=== PATIENT | female | born 1985 | race Hispanic/Latino ===

== ENCOUNTER 2020-11-14 03:57 | Emergency (ER) | payer OTHER ==
[2020-11-14 14:25] LABS: SARS-CoV-2 PCR by NAA Not Detected (NotDetected)
== END 2020-11-14 04:53 | disposition home or self-care (01) ==
LOC: CSHERS 03:57
DX: J06.9 Acute upper respiratory infection, unspecified (principal); Z20.822 Contact with and (suspected) exposure to COVID-19; D64.9 Anemia, unspecified; F17.210 Nicotine dependence, cigarettes, uncomplicated
CPT/HCPCS: 71045; 87635; 93005; U0003; U0005

== ENCOUNTER 2021-10-05 18:28 | Emergency (ER) | payer OTHER, SELFPAY ==
[2021-10-05 19:07] LABS: #Basophils 0.1 10x3/uL (0.0-0.2); #Eosinphils 0.1 10x3/uL (0.0-0.5); #Monocytes 0.4 10x3/uL (0.0-1.1); #Neutrophils 6.7 10x3/uL (1.5-8.4); %Basophils 0.5 % (0.0-2.0); %Eosinophils 1.5 % (0.0-6.0); %Monocytes 4.6 % (0.0-10.0); %Neutrophils 69.1 % (40.0-75.0); Hemoglobin 12.3 g/dL (12.0-15.5); Mean Corpuscular HGB CONC 32.5 g/dL (32.0-36.0); Mean Corpuscular Hemoglobin 27.3 pg (27.0-33.0); Mean Platelet Volume 11.6 fl (7.4-10.4); Platelet Count 252 10x3/uL (150-450); RBC Distribution Width 16.3 % (11.5-14.5); White Blood Cell (WBC) Count 9.6 10x3/uL (3.5-10.5)
[2021-10-05 19:21] LABS: ALT (SGPT) 19 U/L (8-55); AST (SGOT) 15 U/L (5-34); Albumin 4.1 g/dL (3.5-5.0); Alkaline Phosphatase 67 U/L (40-110); Anion Gap 11 mmol/L (10-20); BUN (Urea Nitrogen) 10 mg/dL (7.0-18.7); Bilirubin, Total 0.2 mg/dL (0.2-1.2); Calc. Creatinine Clearance 0 mL/min (70-130); Calcium 9.2 mg/dL (7.8-10.44); Carbon Dioxide 26 mmol/L (22-29); Chloride 106 mmol/L (98-107); Glucose 107 mg/dL (70-105); Potassium 3.8 mmol/L (3.5-5.1); Protein, Total 7.1 g/dL (6.0-8.3); Sodium 139 mmol/L (136-145)
[2021-10-05 19:33] LABS: Bilirubin Neg (Negative); Blood, Urine 150 (Negative); Glucose, Urine (Dipstick) Normal (Negative); Ketone, Urine Negative (Negative); Leukocyte Negative (Negative); Nitrite Negative (Negative); Protein, Urine (Dipstick) Negative (Neg-Trace); Specific Gravity, Urine 1.015 (1.002-1.036); Urobilinogen Normal mg/dL (Less than 2); pH, Urine 6.5 (5.0-9.0)
[2021-10-05 19:35] LABS: Clarity Clear (Clear)
[2021-10-05 19:36] LABS: Pregnancy Test - Urine (BHCG) Negative (Negative); Pregu Control Background? CLEAR/WHITE (CLR/WHITE); Pregu Control Bar Appear? YES (CONTROL BAR); Specific Gravity 1.015 (1.002-1.036)
[2021-10-05 19:52] LABS: Bacteria/HPF None Seen HPF (None Seen); Squamous Epithelial None Seen HPF (0-3); WBC/HPF None Seen HPF (0-3)
== END 2021-10-05 20:51 | disposition home or self-care (01) ==
LOC: CSHERS 18:28
DX: O20.0 Threatened abortion (principal); Z3A.01 Less than 8 weeks gestation of pregnancy; O99.331 Smoking (tobacco) complicating pregnancy, first trimester; F17.210 Nicotine dependence, cigarettes, uncomplicated
CPT/HCPCS: 36415; 76856; 80053; 81003; 81015; 81025; 84702; 85025; 86900; 86901

== ENCOUNTER 2021-10-07 18:25 | Emergency (ER) | payer SELFPAY | END 2021-10-07 19:51 | disposition home or self-care (01) | LOC: CSHERS 18:25 | DX: O03.4 Incomplete spontaneous abortion without complication (principal); F17.210 Nicotine dependence, cigarettes, uncomplicated | CPT/HCPCS: 84702; 99284 ==

== ENCOUNTER 2022-01-22 23:26 | Emergency (ER) | payer SELFPAY ==
[2022-01-23 01:43] LABS: #Monocytes 0.7 10x3/uL (0.0-1.1); #Neutrophils 7.3 10x3/uL (1.5-8.4); %Basophils 0.4 % (0.0-2.0); %Eosinophils 0.4 % (0.0-6.0); %Lymphocytes 6.3 % (18.0-47.0); %Monocytes 7.7 % (0.0-10.0); %Neutrophils 84.8 % (40.0-75.0); Hemoglobin 11.3 g/dL (12.0-15.5); Mean Corpuscular Hemoglobin 27.6 pg (27.0-33.0); Mean Corpuscular Volume 83.6 fl (81.6-98.3); Mean Platelet Volume 11.2 fl (7.4-10.4); Platelet Count 204 10x3/uL (150-450); RBC Distribution Width 16.6 % (11.5-14.5); Red Blood Cell (RBC) Count 4.09 10x6/uL (3.90-5.03); White Blood Cell (WBC) Count 8.6 10x3/uL (3.5-10.5)
[2022-01-23 01:57] LABS: ALT (SGPT) 46 U/L (8-55); AST (SGOT) 30 U/L (5-34); Albumin 3.9 g/dL (3.5-5.0); Alkaline Phosphatase 69 U/L (40-110); Anion Gap 10 mmol/L (10-20); BUN (Urea Nitrogen) 6 mg/dL (7.0-18.7); Bilirubin, Total 0.3 mg/dL (0.2-1.2); Calc. Creatinine Clearance 0 mL/min (70-130); Calcium 8.7 mg/dL (7.8-10.44); Carbon Dioxide 26 mmol/L (22-29); Chloride 102 mmol/L (98-107); Estimated GFR 120; Globulin 3.1 g/dL (2.4-3.5); Glucose 81 mg/dL (70-105); Lipase 6 U/L (8-78); Magnesium 1.9 mg/dL (1.6-2.6); Potassium 3.6 mmol/L (3.5-5.1); Sodium 134 mmol/L (136-145)
[2022-01-23] MEDS ORDERED: Acetaminophen 500 MG TAB ONE (01:57)
[2022-01-23] MEDS ORDERED: diphenhydrAMINE 50 MG/ML VIAL ONE (01:57)
[2022-01-23] MEDS ORDERED: Metoclopramide HCl 10 MG/2 ML VIAL ONE (01:57)
[2022-01-23] MEDS ORDERED: Magnesium 2 GM/50 ML BAG (IN WATER) ONE (01:57)
== END 2022-01-23 04:07 | disposition home or self-care (01) ==
LOC: CSHERS 23:26
DX: O99.891 Other specified diseases and conditions complicating pregnancy (principal); R51.9 Headache, unspecified; O21.9 Vomiting of pregnancy, unspecified; F17.210 Nicotine dependence, cigarettes, uncomplicated; O99.331 Smoking (tobacco) complicating pregnancy, first trimester; Z3A.11 11 weeks gestation of pregnancy
CPT/HCPCS: 36415; 80053; 83690; 83735; 85025; 96374; 96375; J1200; J2765; J3475

== ENCOUNTER 2022-02-05 22:17 | Emergency (ER) | payer SELFPAY ==
[~2022-02-05 22:17] MED LIST: Iopamidol 370 76% 100 ML VIAL ONE
[2022-02-05 22:48] LABS: #Eosinphils 0.1 10x3/uL (0.0-0.5); #Monocytes 0.7 10x3/uL (0.0-1.1); #Neutrophils 5.5 10x3/uL (1.5-8.4); %Basophils 0.4 % (0.0-2.0); %Eosinophils 0.8 % (0.0-6.0); %Monocytes 8.4 % (0.0-10.0); Hemoglobin 11.7 g/dL (12.0-15.5); Mean Corpuscular HGB CONC 34.6 g/dL (32.0-36.0); Mean Corpuscular Hemoglobin 27.8 pg (27.0-33.0); Mean Corpuscular Volume 80.3 fl (81.6-98.3); Mean Platelet Volume 11.7 fl (7.4-10.4); Platelet Count 247 10x3/uL (150-450); RBC Distribution Width 15.7 % (11.5-14.5); Red Blood Cell (RBC) Count 4.21 10x6/uL (3.90-5.03); White Blood Cell (WBC) Count 8.4 10x3/uL (3.5-10.5)
[2022-02-05 23:02] LABS: ALT (SGPT) 22 U/L (8-55); AST (SGOT) 15 U/L (5-34); Albumin 3.8 g/dL (3.5-5.0); Alkaline Phosphatase 76 U/L (40-110); Anion Gap 13 mmol/L (10-20); BUN (Urea Nitrogen) 6 mg/dL (7.0-18.7); Bilirubin, Total 0.3 mg/dL (0.2-1.2); Calc. Creatinine Clearance 0 mL/min (70-130); Carbon Dioxide 21 mmol/L (22-29); Chloride 105 mmol/L (98-107); Estimated GFR 119; Globulin 3.2 g/dL (2.4-3.5); Glucose 96 mg/dL (70-105); Potassium 3.6 mmol/L (3.5-5.1); Sodium 135 mmol/L (136-145)
[2022-02-05] MEDS ORDERED: diphenhydrAMINE 50 MG/ML VIAL ONE (23:14)
[2022-02-05] MEDS ORDERED: Ondansetron PF 4 MG/2 ML Vial ONE (23:14)
[2022-02-05] MEDS ORDERED: Metoclopramide HCl 10 MG/2 ML VIAL ONE (23:14)
[2022-02-05] MEDS ORDERED: Magnesium 2 GM/50 ML BAG (IN WATER) ONE (23:15)
[2022-02-05 23:44] LABS: Bilirubin Neg (Negative); Blood, Urine Negative (Negative); Clarity Clear (Clear); Glucose, Urine (Dipstick) Normal (Negative); Ketone, Urine Negative (Negative); Leukocyte Negative (Negative); Nitrite Negative (Negative); Protein, Urine (Dipstick) Negative (Neg-Trace); Urobilinogen Normal mg/dL (Less than 2); pH, Urine 6.5 (5.0-9.0)
== END 2022-02-06 01:50 | disposition home or self-care (01) ==
LOC: CSHERS 22:17
DX: O98.511 Other viral diseases complicating pregnancy, first trimester (principal); U07.1 COVID-19; O21.9 Vomiting of pregnancy, unspecified; O99.891 Other specified diseases and conditions complicating pregnancy; R51.9 Headache, unspecified; O99.281 Endocrine, nutritional and metabolic diseases complicating pregnancy, first trimester; E86.0 Dehydration; O99.331 Smoking (tobacco) complicating pregnancy, first trimester; F17.210 Nicotine dependence, cigarettes, uncomplicated; Z3A.13 13 weeks gestation of pregnancy
CPT/HCPCS: 70496; 80053; 81003; 85025; 93005; 96365; 96375; J1200; J2405; J2765; J3475; Q9967; U0003; U0005

== ENCOUNTER 2022-05-13 14:51 | Outpatient (CLI) | payer OTHER | END 2022-05-13 14:52 | disposition home or self-care (01) | LOC: CSHULT 14:51 | PROVIDERS: ATTEND Family Medicine | DX: O09.522 Supervision of elderly multigravida, second trimester (principal); Z3A.27 27 weeks gestation of pregnancy | CPT/HCPCS: 76805 ==

== ENCOUNTER 2022-07-28 23:48 | Inpatient (IN) | payer OTHER ==
[2022-07-29 00:19] VITALS: BMI 32.5
[2022-07-29] MEDS ORDERED: Methylergonovine 0.2 MG/ML VIAL IM PRN (00:30)
[2022-07-29] MEDS ORDERED: Lidocaine 1% (PF) 30 ML VIAL SC PRN (00:30)
[2022-07-29] MEDS ORDERED: Diphenoxylate HCl/Atropine Tablet PO PRN ×2 (00:30)
[2022-07-29] MEDS ORDERED: NS w/ Oxytocin 30 units 500 ML IVPB SCH (00:30)
[2022-07-29] MEDS ORDERED: Misoprostol 200 MCG TAB RC PRN (00:30)
[2022-07-29] MEDS ORDERED: Carboprost 250 MCG/ML AMP IM PRN (00:30)
[2022-07-29] MEDS ORDERED: Ibuprofen 800 MG TAB PO PRN (00:30)
[2022-07-29] MEDS ORDERED: Promethazine HCl 25 MG/ML VIAL IM PRN ×2 (00:45→13:54)
[2022-07-29] MEDS ORDERED: Acetaminophen 500 MG TAB PO PRN (00:45)
[2022-07-29] MEDS ORDERED: Butorphanol Tartrate 1 MG/ML VIAL SLOW IVP PRN (00:45)
[2022-07-29] MEDS ORDERED: Ondansetron PF 4 MG/2 ML Vial IVP PRN ×2 (00:45→13:54)
[2022-07-29] MEDS ORDERED: hydrALAZINE 20 MG/ML VIAL SLOW IVP PRN ×2 (00:45→13:54)
[2022-07-29 00:53] LABS: Hemoglobin 7.9 g/dL (12.0-15.5); Mean Corpuscular HGB CONC 30.7 g/dL (32.0-36.0); Mean Corpuscular Hemoglobin 21.4 pg (27.0-33.0); Mean Corpuscular Volume 69.6 fl (81.6-98.3); Platelet Count 233 10x3/uL (150-450); RBC Distribution Width 17.3 % (11.5-14.5); Red Blood Cell (RBC) Count 3.69 10x6/uL (3.90-5.03); White Blood Cell (WBC) Count 7.8 10x3/uL (3.5-10.5)
[2022-07-29] MEDS: Lactated Ringer's 1,000 ML IV SCH ×2 (00:55→22:13)
[2022-07-29 01:10] LABS: Syphilis Antibody Nonreactive (Nonreactive); Syphilis Antibody Index 0.03 S/CO (<1.00 Non-Reactive)
[2022-07-29 01:12] LABS: HBSAg Index 0.19 S/CO (0-0.99); Hep B Surf Ag Non-Reactive S/CO (NonReactive)
[2022-07-29 01:15] LABS: SARS-CoV-2 NAA Rapid Test DETECTED (NotDetected)
[2022-07-29] MEDS ORDERED: diphenhydrAMINE 25 MG CAP PO PRN (13:54)
[2022-07-29] MEDS ORDERED: Bisacodyl 10 MG SUPP PR PRN (13:54)
[2022-07-29] MEDS ORDERED: Lanolin Ointment 7 GM TUBE TOP PRN (13:54)
[2022-07-29] MEDS ORDERED: Boostrix 0.5 ML (Tdap) VIAL (>/=7 yrs of age) IM ONE (13:54)
[2022-07-29] MEDS ORDERED: Milk Of Magnesia 30 ML UDCUP PO PRN (13:54)
[2022-07-29] MEDS ORDERED: Benzocaine-Menthol 82.5 ML CAN TOP PRN (13:54)
[2022-07-29] MEDS: Ibuprofen 800 MG TAB PO SCH ×2 (14:20→21:17)
[2022-07-29] MEDS ORDERED: Ferrous Sulfate 325 MG TAB PO SCH (17:00)
[2022-07-29] MEDS ORDERED: Docusate 100 MG CAP PO SCH (21:00)
[2022-07-30] MEDS: traMADol HCl 50 MG TAB PO PRN ×2 (00:23→14:17)
[2022-07-30] MEDS: Ibuprofen 800 MG TAB PO SCH ×2 (04:56→14:17)
[2022-07-30 05:25] VITALS: BP 113/66; TEMP 97.7
[2022-07-30] MEDS ORDERED: Prenatal Vitamin 1 TAB PO SCH (09:00)
== END 2022-07-30 15:55 | disposition home or self-care (01) | DRG 805 ==
LOC: CSHLD/OP 23:48 → CSHLD 07-29 00:18 → CSHANTE 07-29 13:10
PROVIDERS: ADMIT Family Medicine; ATTEND Family Medicine
PROC: 10E0XZZ Delivery of Products of Conception, External Approach (ICD-10-PCS; principal; 2022-07-29)
DX: O42.02 Full-term premature rupture of membranes, onset of labor within 24 hours of rupture (principal); U07.1 COVID-19; Z37.0 Single live birth; O98.52 Other viral diseases complicating childbirth; O99.02 Anemia complicating childbirth; D64.9 Anemia, unspecified; Z3A.38 38 weeks gestation of pregnancy
CPT/HCPCS: 36415; 85027; 86780; 86850; 86900; 86901; 87340; 99285; J2590; J7120; U0002